=== PATIENT | female | born 1960 | race Asian ===

== ENCOUNTER 2016-05-29 09:19 | Outpatient (CLI) | payer OTHER ==
[~2016-05-29 09:19] MED LIST: ASPIRIN LOW81 MG OR; BUME1TAB19 PO; CARV3.12 PO; COZAAR25 MG PO; KLOR-CON M2020 MEQ OR; MULT VITAMI1 OR; SPIR25TA66 PO; WARF2.5T8 PO; WARF5TAB6 PO; ZAROXOLYN2.5 MG OR; [UNRECOGNIZED DRUG - CODE] IV
== END 2016-05-29 20:08 | disposition home or self-care (01) ==
LOC: US 09:19
DX: R18.8 Other ascites (principal)